=== PATIENT | female | born 1970 | race Caucasian/White ===

== ENCOUNTER 2018-10-21 16:35 | Emergency (ER) | payer OTHER ==
[~2018-10-21] VITALS: Ht 160 cm; Wt 71.7 kg
--- NOTE | 2018-10-21 17:49 | NUR ---
Patient discharged to home in stable condition. Written and verbal after care instructions given. Patient verbalizes understanding of instruction.
[2018-10-21 17:52] VITALS: BP 135/78
== END 2018-10-21 17:53 | disposition home or self-care (01) ==
LOC: ER 16:39
DX: F41.0 Panic disorder [episodic paroxysmal anxiety] (principal); F43.9 Reaction to severe stress, unspecified; R42 Dizziness and giddiness; R53.83 Other fatigue; Z98.890 Other specified postprocedural states